=== PATIENT | female | born 1950 | race Caucasian/White ===

== ENCOUNTER → 2016-07-09 | Outpatient (CLI) | payer MEDICARE, OTHER ==
[~2016-07-09] MED LIST: CALCIUM 500 +1 EAC1 PO; CIPRO 500MG TA500 MG PO; COMBIVENT RESPI1 SPR IH; COZAAR 50MG50 MG/TAB PO; MACROBID 100 M100 MG PO; MEDI-FIRST ASP325 MG PO; NATURE'S BLEN2000 IU PO; NEXIUM 40MG40 MG PO; NORCO 325 MG-51 TAB PO; THEODUR 200MG PO; ZOCOR20 M1 PO; ZYRTEC10 M3 PO
== END ==
LOC: LAB 16:54
DX: N18.2 Chronic kidney disease, stage 2 (mild) (principal); E66.9 Obesity, unspecified

== ENCOUNTER → 2017-01-13 | Outpatient (CLI) | payer MEDICARE, OTHER ==
[2016-01-26 01:40] VITALS: BP 134/89
== END ==
LOC: LAB 16:54
DX: I10 Essential (primary) hypertension (principal); N18.2 Chronic kidney disease, stage 2 (mild)

== ENCOUNTER → 2017-01-29 | Outpatient (CLI) | payer MEDICARE, OTHER ==
[2016-01-26 01:40] VITALS: BP 134/89
== END ==
LOC: LAB 07:43
DX: I10 Essential (primary) hypertension (principal); M85.80 Other specified disorders of bone density and structure, unspecified site; R30.0 Dysuria

== ENCOUNTER → 2017-07-15 | Outpatient (CLI) | payer MEDICARE, OTHER ==
[2016-01-26 01:40] VITALS: BP 134/89
[2017-07-15 16:59] LABS: HEMATOCRIT 42.5 % (37.0-47.0); HEMOGLOBIN 13.6 g/dL (12.5-16.0)
[2017-07-15 17:05] LABS: BUN/CREATININE RATIO 15.8 (6.0-26.0); CALCIUM 8.8 mg/dL (8.4-10.2); POTASSIUM 4.4 mmol/L (3.6-5.0)
== END ==
LOC: LAB 16:18
PROVIDERS: Internal Medicine Nephrology
DX: N18.2 Chronic kidney disease, stage 2 (mild) (principal)

== ENCOUNTER → 2018-01-24 | Outpatient (CLI) | payer MEDICARE, OTHER ==
[2016-01-26 01:40] VITALS: BP 134/89
[2018-01-24 08:45] LABS: ALBUMIN 4.1 g/dL (3.5-5.0); BUN/CREATININE RATIO 15.2 (6.0-26.0); CALCIUM 9.2 mg/dL (8.4-10.2); POTASSIUM 4.4 mmol/L (3.6-5.0); TOTAL BILIRUBIN 0.4 mg/dL (0.2-1.3); TOTAL PROTEIN 7.5 g/dL (6.3-8.2)
[2018-01-25 02:34] LABS: HEPATITIS C VIRUS ANTIBODY Negative (())
== END ==
LOC: LAB 08:04
DX: E78.5 Hyperlipidemia, unspecified (principal); E55.9 Vitamin D deficiency, unspecified; R53.83 Other fatigue; R79.89 Other specified abnormal findings of blood chemistry

== ENCOUNTER → 2018-03-18 | Outpatient (CLI) | payer MEDICARE, OTHER ==
[2016-01-26 01:40] VITALS: BP 134/89
[2018-03-18 16:52] LABS: HEMATOCRIT 42.1 % (37.0-47.0)
[2018-03-18 18:44] LABS: CALCIUM 9.6 mg/dL (8.4-10.2)
[2018-03-18 23:25] LABS: CREATININE OTHER SOURCE 41 mg/dL (())
== END ==
LOC: LAB 16:24
PROVIDERS: Internal Medicine Nephrology
DX: I12.9 Hypertensive chronic kidney disease with stage 1 through stage 4 chronic kidney disease, or unspecified chronic kidney disease (principal); N18.2 Chronic kidney disease, stage 2 (mild)

== ENCOUNTER → 2018-09-29 | Outpatient (CLI) | payer MEDICARE, OTHER ==
[2016-01-26 01:40] VITALS: BP 134/89
[2018-09-29 17:56] LABS: HEMATOCRIT 42.8 % (37.0-47.0); HEMOGLOBIN 13.8 g/dL (12.5-16.0)
[2018-09-29 18:00] LABS: CALCIUM 9.6 mg/dL (8.4-10.2); POTASSIUM 4.2 mmol/L (3.6-5.0)
== END ==
LOC: LAB 17:16
PROVIDERS: Internal Medicine Nephrology
DX: I12.9 Hypertensive chronic kidney disease with stage 1 through stage 4 chronic kidney disease, or unspecified chronic kidney disease (principal); N18.3 Chronic kidney disease, stage 3 (moderate); Z72.0 Tobacco use

== ENCOUNTER → 2019-03-28 | Outpatient (CLI) | payer MEDICARE, OTHER ==
[2016-01-26 01:40] VITALS: BP 134/89
[2019-03-28 10:45] LABS: URINE APPEARANCE CLOUDY; URINE BILIRUBIN NEGATIVE (NEGATIVE); URINE BLOOD 250 ery/uL (NEGATIVE); URINE COLOR YELLOW; URINE GLUCOSE NEGATIVE (NEGATIVE); URINE KETONE NEGATIVE (NEGATIVE); URINE NITRATE POSITIVE (NEGATIVE); URINE PROTEIN(semi-quant) 1+ mg/dL (NEGATIVE); URINE UROBILINOGEN NORMAL (NORMAL)
[2019-03-28 10:46] LABS: URINE LEUKOCYTE ESTERASE 1+ (NEGATIVE); URINE WBC >50 /hpf (0-3)
== END ==
LOC: LAB 10:21
PROVIDERS: Family Medicine
DX: R35.8 Other polyuria (principal)

== ENCOUNTER → 2019-06-30 | Outpatient (CLI) | payer MEDICARE, OTHER ==
[2016-01-26 01:40] VITALS: BP 134/89
[2019-06-30 16:38] LABS: HEMATOCRIT 40.7 % (37.0-47.0)
[2019-06-30 16:49] LABS: CALCIUM 9.8 mg/dL (8.3-10.5)
== END ==
LOC: LAB 16:23
PROVIDERS: Internal Medicine Nephrology
DX: I12.9 Hypertensive chronic kidney disease with stage 1 through stage 4 chronic kidney disease, or unspecified chronic kidney disease (principal); N18.3 Chronic kidney disease, stage 3 (moderate)

== ENCOUNTER → 2020-01-02 | Outpatient (CLI) | payer MEDICARE, OTHER ==
[2016-01-26 01:40] VITALS: BP 134/89
[2020-01-02 07:55] LABS: HEMATOCRIT 40.2 % (37.0-47.0); HEMOGLOBIN 12.8 g/dL (12.5-16.0); MEAN PLATELET VOLUME 9.6 fl (7.4-10.4); RED BLOOD COUNT 4.26 M/mm3 (4.10-5.30); RED CELL DISTRIBUTION WIDTH 15.1 % (11.5-14.5); WHITE BLOOD COUNT 10.1 K/mm3 (4.8-10.8)
[2020-01-02 08:04] LABS: POTASSIUM 4.2 mmol/L (3.5-5.1)
[2020-01-02 08:05] LABS: CALCIUM 9.5 mg/dL (8.3-10.5)
[2020-01-02 08:07] LABS: TOTAL PROTEIN 7.3 g/dL (6.2-8.1)
[2020-01-02 08:21] LABS: PH-URINE 5.5 (5.0 - 8.0); URINE APPEARANCE HAZY; URINE COLOR YELLOW
[2020-01-02 08:22] LABS: URINE BILIRUBIN NEGATIVE (NEGATIVE); URINE BLOOD 50 ery/uL (NEGATIVE); URINE GLUCOSE NEGATIVE (NEGATIVE); URINE KETONE NEGATIVE (NEGATIVE); URINE LEUKOCYTE ESTERASE TRACE (NEGATIVE); URINE NITRATE NEGATIVE (NEGATIVE); URINE PROTEIN(semi-quant) NEGATIVE (NEGATIVE); URINE UROBILINOGEN NORMAL (NORMAL)
[2020-01-02 08:59] LABS: TOTAL BILIRUBIN 0.3 mg/dL (0.2-1.2)
== END ==
LOC: LAB 07:30
DX: I10 Essential (primary) hypertension (principal); E78.5 Hyperlipidemia, unspecified

== ENCOUNTER → 2020-07-08 | Outpatient (CLI) | payer MEDICARE, OTHER ==
[2016-01-26 01:40] VITALS: BP 134/89
[2020-07-08 08:57] LABS: POTASSIUM 4.3 mmol/L (3.5-5.1)
[2020-07-08 08:58] LABS: CALCIUM 8.9 mg/dL (8.3-10.5)
== END ==
LOC: LAB 07:35
PROVIDERS: Internal Medicine Nephrology
DX: I12.9 Hypertensive chronic kidney disease with stage 1 through stage 4 chronic kidney disease, or unspecified chronic kidney disease (principal); N18.30 Chronic kidney disease, stage 3 unspecified

== ENCOUNTER 2020-09-04 15:44 | Emergency (ER) | payer MEDICARE, OTHER ==
[2020-09-04] MEDS ORDERED: PRESERVISION A1 EAC1 PO (16:07)
[2020-09-04] MEDS ORDERED: LOSARTAN POTASS50 M1 PO (16:07)
[2020-09-04] MEDS ORDERED: THEO-24 20200 MG/CAP PO (16:07)
[2020-09-04] MEDS ORDERED: CALCIUM CARBON500 M3 PO (16:08)
[2020-09-04] MEDS ORDERED: TRELEGY ELLIPT1 EACH IH (16:08)
[2020-09-04] MEDS ORDERED: GOOD NEIGHBOR325 MG PO (16:08)
[2020-09-04] MEDS ORDERED: DALIRESP250 MCG PO (16:08)
[2020-09-04] MEDS ORDERED: SIMVASTATIN20 M1 PO (16:09)
[2020-09-04] MEDS ORDERED: PANTOPRAZOLE SO40 MG PO (16:10)
[2020-09-04 16:27] LABS: HEMATOCRIT 39.7 % (37.0-47.0); HEMOGLOBIN 12.7 g/dL (12.5-16.0); MEAN CELL VOLUME 94 fl (78-100); MEAN CORPUSCULAR HEMOGLOBIN 30 pg (27-31); MEAN CORPUSCULAR HGB CONC 32 g/dL (33-37); MEAN PLATELET VOLUME 9.6 fl (7.4-10.4); PLATELET COUNT 244 K/mm3 (130-400); RED BLOOD COUNT 4.24 M/mm3 (4.10-5.30); RED CELL DISTRIBUTION WIDTH 15.5 % (11.5-14.5); WHITE BLOOD COUNT 11.3 K/mm3 (4.8-10.8)
[2020-09-04 16:39] LABS: ALBUMIN 3.9 g/dL (3.4-4.8); POTASSIUM 4.5 mmol/L (3.5-5.1)
[2020-09-04 16:42] LABS: TOTAL PROTEIN 7.1 g/dL (6.2-8.1)
[2020-09-04 16:43] LABS: TOTAL BILIRUBIN 0.6 mg/dL (0.2-1.2)
[2020-09-04 16:53] LABS: LYMPHOCYTE 10 % (20-51); MONOCYTE 6 % (3-10); NEUTROPHILS 83 % (42-75)
[2020-09-04 17:14] LABS: URINE APPEARANCE CLOUDY; URINE COLOR YELLOW
[2020-09-04 17:15] LABS: PH-URINE 6.5 (5.0 - 8.0)
[2020-09-04 17:16] LABS: URINE BILIRUBIN NEGATIVE (NEGATIVE); URINE BLOOD 250 ery/uL (NEGATIVE); URINE GLUCOSE NEGATIVE (NEGATIVE); URINE KETONE NEGATIVE (NEGATIVE); URINE LEUKOCYTE ESTERASE 1+ (NEGATIVE); URINE NITRATE NEGATIVE (NEGATIVE); URINE PROTEIN(semi-quant) 2+ mg/dL (NEGATIVE); URINE UROBILINOGEN NORMAL (NORMAL); URINE WBC 16-30 /hpf (0-3)
[2020-09-04 17:17] LABS: URINE MUCUS PRESENT (NOT PRESENT)
[2020-09-04] MEDS ORDERED: MACROBID 100 M100 MG PO (17:32)
[2020-09-04 17:37] VITALS: BP 116/82
== END 2020-09-04 17:38 | disposition home or self-care (01) ==
LOC: ED 15:44
PROVIDERS: Physician Assistant
DX: N39.0 Urinary tract infection, site not specified (principal); N28.9 Disorder of kidney and ureter, unspecified; I13.10 Hypertensive heart and chronic kidney disease without heart failure, with stage 1 through stage 4 chronic kidney disease, or unspecified chronic kidney disease; N18.30 Chronic kidney disease, stage 3 unspecified; J44.9 Chronic obstructive pulmonary disease, unspecified; F17.210 Nicotine dependence, cigarettes, uncomplicated; Z20.822 Contact with and (suspected) exposure to COVID-19; Z79.82 Long term (current) use of aspirin
CPT/HCPCS: J0696

== ENCOUNTER → 2021-01-13 | Outpatient (CLI) | payer MEDICARE, OTHER ==
[~2021-01-13] MED LIST changes: +CALCIUM CARBON500 M3 PO; +DALIRESP250 MCG PO; +GOOD NEIGHBOR325 MG PO; +LOSARTAN POTASS50 M1 PO; +PANTOPRAZOLE SO40 MG PO; +PRESERVISION A1 EAC1 PO; +SIMVASTATIN20 M1 PO; +THEO-24 20200 MG/CAP PO; +TRELEGY ELLIPT1 EACH IH
[2021-01-13 17:28] LABS: POTASSIUM 4.1 mmol/L (3.5-5.1)
[2021-01-13 17:29] LABS: CALCIUM 9.6 mg/dL (8.3-10.5)
[2021-01-13 23:01] LABS: CREATININE OTHER SOURCE 51 mg/dL (())
== END ==
LOC: LAB 16:50
PROVIDERS: Internal Medicine Nephrology
DX: I12.9 Hypertensive chronic kidney disease with stage 1 through stage 4 chronic kidney disease, or unspecified chronic kidney disease (principal); N18.32 Chronic kidney disease, stage 3b

== ENCOUNTER → 2021-04-02 | Outpatient (CLI) | payer MEDICARE, OTHER ==
[2021-04-02 08:09] LABS: HEMATOCRIT 43.8 % (37.0-47.0); HEMOGLOBIN 14.5 g/dL (12.5-16.0); MEAN PLATELET VOLUME 9.3 fl (7.4-10.4); RED BLOOD COUNT 4.7 M/mm3 (4.10-5.30); RED CELL DISTRIBUTION WIDTH 14.9 % (11.5-14.5); WHITE BLOOD COUNT 10.4 K/mm3 (4.8-10.8)
[2021-04-02 08:27] LABS: POTASSIUM 4.3 mmol/L (3.5-5.1)
[2021-04-02 08:29] LABS: CALCIUM 10.2 mg/dL (8.3-10.5)
[2021-04-02 08:30] LABS: ALBUMIN 4.3 g/dL (3.4-4.8)
[2021-04-02 08:31] LABS: TOTAL PROTEIN 7.6 g/dL (6.2-8.1)
[2021-04-02 08:32] LABS: TOTAL BILIRUBIN 0.6 mg/dL (0.2-1.2)
[2021-04-02 08:35] LABS: URINE APPEARANCE CLEAR; URINE BILIRUBIN NEGATIVE (NEGATIVE); URINE BLOOD 50 ery/uL (NEGATIVE); URINE COLOR YELLOW; URINE GLUCOSE NEGATIVE (NEGATIVE); URINE KETONE NEGATIVE (NEGATIVE); URINE LEUKOCYTE ESTERASE TRACE (NEGATIVE); URINE MUCUS PRESENT (NOT PRESENT); URINE NITRATE NEGATIVE (NEGATIVE); URINE PROTEIN(semi-quant) TRACE mg/dL (NEGATIVE); URINE UROBILINOGEN NORMAL (NORMAL)
[2021-04-02 08:36] LABS: DIRECT BILIRUBIN 0.3 mg/dL (0.0-0.5)
== END ==
LOC: LAB 07:39
PROVIDERS: Internal Medicine Nephrology
DX: I12.9 Hypertensive chronic kidney disease with stage 1 through stage 4 chronic kidney disease, or unspecified chronic kidney disease (principal); K90.9 Intestinal malabsorption, unspecified; N18.32 Chronic kidney disease, stage 3b

== ENCOUNTER → 2021-07-03 | Outpatient (CLI) | payer MEDICARE, OTHER ==
[2021-07-03 16:42] LABS: ALBUMIN 4.5 g/dL (3.4-4.8)
[2021-07-03 16:43] LABS: CALCIUM 10.2 mg/dL (8.3-10.5)
[2021-07-03 16:45] LABS: TOTAL PROTEIN 7.9 g/dL (6.2-8.1)
[2021-07-03 16:46] LABS: TOTAL BILIRUBIN 0.2 mg/dL (0.2-1.2)
[2021-07-03 16:53] LABS: PH-URINE 5.5 (5.0 - 8.0); URINE APPEARANCE CLEAR; URINE BILIRUBIN NEGATIVE (NEGATIVE); URINE BLOOD 50 ery/uL (NEGATIVE); URINE COLOR LIGHT YELLOW; URINE GLUCOSE NEGATIVE (NEGATIVE); URINE KETONE NEGATIVE (NEGATIVE); URINE LEUKOCYTE ESTERASE NEGATIVE (NEGATIVE); URINE NITRATE NEGATIVE (NEGATIVE); URINE PROTEIN(semi-quant) TRACE (NEGATIVE); URINE UROBILINOGEN NORMAL (NORMAL); URINE WBC 0-1 /hpf (0-3)
== END ==
LOC: LAB 16:19
PROVIDERS: Physician Assistant
DX: R10.9 Unspecified abdominal pain (principal)

== ENCOUNTER 2021-12-29 07:17 | Emergency (ER) | payer MEDICARE, OTHER ==
[2021-12-29] MEDS ORDERED: AZITHROMYCIN 250MGPK PO (07:31)
[2021-12-29] MEDS ORDERED: PREDNISONE10 MG PO (07:32)
[2021-12-29] MEDS ORDERED: DESYREL50 MG PO (07:32)
[2021-12-29 08:37] LABS: BASO # 0.02 K/mm3 (0.02-0.10); EOS # 0.09 K/mm3 (0.04-0.40); EOS % 0.7 % (1.0-5.0); HEMATOCRIT 39.4 % (37.0-47.0); HEMOGLOBIN 12.9 g/dL (12.5-16.0); LYMPH# 1.83 K/mm3 (1.50-4.00); MEAN CELL VOLUME 92 fl (78-100); MEAN CORPUSCULAR HEMOGLOBIN 30 pg (27-31); MEAN CORPUSCULAR HGB CONC 33 g/dL (33-37); MEAN PLATELET VOLUME 9.1 fl (7.4-10.4); MONO # 0.96 K/mm3 (0.20-0.80); NEU # 10.29 K/mm3 (1.40-6.50); PLATELET COUNT 341 K/mm3 (130-400); RED BLOOD COUNT 4.27 M/mm3 (4.10-5.30); RED CELL DISTRIBUTION WIDTH 14.4 % (11.5-14.5); WHITE BLOOD COUNT 13.3 K/mm3 (4.8-10.8)
[2021-12-29 09:17] LABS: ALBUMIN 3.9 g/dL (3.4-4.8)
[2021-12-29 09:18] LABS: POTASSIUM 3.4 mmol/L (3.5-5.1)
[2021-12-29 09:19] LABS: CALCIUM 9.3 mg/dL (8.3-10.5)
[2021-12-29 09:20] LABS: TOTAL PROTEIN 7.2 g/dL (6.2-8.1)
[2021-12-29 09:22] LABS: TOTAL BILIRUBIN 0.3 mg/dL (0.2-1.2)
[2021-12-29] MEDS ORDERED: BENZONATATE200 MG PO (09:36)
[2021-12-29] MEDS ORDERED: HYDROCODONE PO473 ML PO (09:36)
[2021-12-29] MEDS ORDERED: PREDNISONE20 M1 PO (09:36)
[2021-12-29] MEDS ORDERED: ALBUTEROL2.5 MG/3 M IH (09:36)
[2021-12-29 09:54] VITALS: BP 132/76
== END 2021-12-29 09:47 | disposition home or self-care (01) ==
LOC: ED 07:17
PROVIDERS: Physician Assistant
DX: J44.1 Chronic obstructive pulmonary disease with (acute) exacerbation (principal); J40 Bronchitis, not specified as acute or chronic; F17.200 Nicotine dependence, unspecified, uncomplicated; Z28.310 Unvaccinated for COVID-19
CPT/HCPCS: J2930

== ENCOUNTER → 2022-01-13 | Outpatient (CLI) | payer MEDICARE, OTHER ==
[~2022-01-13] MED LIST changes: +ALBUTEROL2.5 MG/3 M IH; +AZITHROMYCIN 250MGPK PO; +BENZONATATE200 MG PO; +DESYREL50 MG PO; +HYDROCODONE PO473 ML PO; +PREDNISONE10 MG PO; +PREDNISONE20 M1 PO
[2022-01-13 17:40] LABS: POTASSIUM 4.2 mmol/L (3.5-5.1)
[2022-01-13 17:41] LABS: CALCIUM 10.7 mg/dL (8.3-10.5)
== END ==
LOC: LAB 17:08
PROVIDERS: Internal Medicine Nephrology
DX: N18.32 Chronic kidney disease, stage 3b (principal); I10 Essential (primary) hypertension

== ENCOUNTER → 2022-01-15 | Outpatient (CLI) | payer MEDICARE, OTHER ==
[2022-01-15 16:33] LABS: CREATININE OTHER SOURCE 122 mg/dL (())
== END ==
LOC: LAB 07:22
PROVIDERS: Internal Medicine Nephrology
DX: Z12.9 Encounter for screening for malignant neoplasm, site unspecified (principal); N18.32 Chronic kidney disease, stage 3b

== ENCOUNTER 2022-07-18 08:37 | Emergency (ER) | payer MEDICARE, OTHER ==
[~2022-07-18] VITALS: Ht 149.9 cm; Wt 63.7 kg
[2022-07-18 09:27] LABS: BASO # 0.04 K/mm3 (0.02-0.10); EOS # 0.27 K/mm3 (0.04-0.40); EOS % 3.8 % (1.0-5.0); HEMOGLOBIN 13.2 g/dL (12.5-16.0); LYMPH# 1.95 K/mm3 (1.50-4.00); MEAN CELL VOLUME 93 fl (78-100); MEAN CORPUSCULAR HEMOGLOBIN 31 pg (27-31); MEAN CORPUSCULAR HGB CONC 33 g/dL (33-37); MEAN PLATELET VOLUME 9.3 fl (7.4-10.4); MONO # 0.39 K/mm3 (0.20-0.80); NEU # 4.51 K/mm3 (1.40-6.50); PLATELET COUNT 274 K/mm3 (130-400); RED BLOOD COUNT 4.29 M/mm3 (4.10-5.30); RED CELL DISTRIBUTION WIDTH 15.1 % (11.5-14.5); WHITE BLOOD COUNT 7.2 K/mm3 (4.8-10.8)
[2022-07-18 09:34] LABS: ALBUMIN 3.9 g/dL (3.4-4.8)
[2022-07-18 09:35] LABS: POTASSIUM 4.5 mmol/L (3.5-5.1)
[2022-07-18 09:36] LABS: CALCIUM 9.4 mg/dL (8.3-10.5)
[2022-07-18 09:37] LABS: TOTAL PROTEIN 6.6 g/dL (6.2-8.1)
[2022-07-18 09:39] LABS: TOTAL BILIRUBIN 0.5 mg/dL (0.2-1.2)
[2022-07-18 10:33] LABS: ERYTHROCYTE SEDIMENTATION RATE 20 mm/hr (0-30)
[2022-07-18 11:05] VITALS: BP 113/70
== END 2022-07-18 11:06 | disposition home or self-care (01) ==
LOC: ED 08:37
PROVIDERS: Family Medicine
DX: R51.9 Headache, unspecified (principal); F17.200 Nicotine dependence, unspecified, uncomplicated